=== PATIENT | female | born 2000 | race American Indian/Alaskan Native ===

== ENCOUNTER 2021-11-04 21:52 | Emergency (ER) | payer SELFPAY ==
[2021-11-04 22:31] VITALS: BP 131/65
== END 2021-11-05 02:10 | disposition left against medical advice (07) ==
LOC: EDBD → ED 21:52
DX: Z00.00 Encounter for general adult medical examination without abnormal findings (principal); Z53.21 Procedure and treatment not carried out due to patient leaving prior to being seen by health care provider